=== PATIENT | female | born 1960 | race Caucasian/White ===

== ENCOUNTER 2020-05-04 07:39 | Outpatient (CLI) | payer OTHER, SELFPAY ==
--- NOTE | ~2020-05-04 | MM_ITS ---
EXAMINATION: MM screening [facility] BI w leanne HISTORY: Screening TECHNIQUE: Craniocaudal and mediolateral oblique 3-D tomosynthesis images were obtained and synthetic 2-D images were generated. CAD analysis was submitted and interpreted. COMPARISON: Comparison to multiple prior studies sequentially, with oldest reviewed study dated 10/14. BREAST PARENCHYMAL COMPOSITION: There are scattered areas of fibroglandular density. FINDINGS: There is no evidence of suspicious mass, calcification, or architectural distortion to sugg est malignancy in either breast. There has been no suspicious interval change. IMPRESSION: 1. No mammographic evidence of malignancy. 2. Recommend routine screening mammography in one year. BI-RADS Category 1: Negative Reviewed, dictated and finalized at location A.
== END 2020-05-04 07:40 | disposition home or self-care (01) ==
LOC: ANHIMG 07:45
PROVIDERS: PCP Registered Nurse; Visit Provider Registered Nurse
DX: Z12.31 Encounter for screening mammogram for malignant neoplasm of breast (principal)
CPT/HCPCS: 77063; 77067

== ENCOUNTER 2020-06-08 09:00 | Outpatient (CLI) | payer OTHER, SELFPAY ==
--- NOTE | 2020-06-11 15:02 | P.PCNHOL_ITS ---
Holter/Event Monitor Holter/Event Monitor Date of procedure: 06/11/20 Procedure Type: 48 hour Holter monitor Diagnosis: palpitation Indications: palpitation Image/Tracing Quality: favorable Finding: the basic cardiac rhythm is sinus with normal NM QRS and QT intervals. The heart rate varies from a minimum of 47 to a maximum of 133. The average heart rate was 73. There were no significant pauses or abnormalities of AV conduction. The longest RR interval recorded was 1.4 seconds. Supraventricular ectopic activity was generally infrequent consisting of occasional PACs. There were several short atrial runs noted the longest of which was only 4 beats in duration the remainder of this ectopic activity was in the form of single PACs. There were no examples of atrial fibrillation. Ventricular ectopic activity was not seen at all during this 48 hour exam the patient submitted a diary which 3 episodes of palpitations were recorded which correlated with normal sinus rhythm without ectopic activity. The atrial ectopic activity including the short atrial runs described above appear to be asymptomatic Conclusion: Essentially unremarkable 48 hour Holter monitor demonstrating low- frequency atrial ectopic activity including some brief 4 beat atrial runs which were not symptomatic Grayson Maher MD [facility]
== END 2020-06-08 09:01 | disposition home or self-care (01) ==
PROVIDERS: PCP Registered Nurse; Visit Provider Registered Nurse
DX: R00.2 Palpitations (principal)
CPT/HCPCS: 93225; 93226

== ENCOUNTER → 2021-01-26 09:19 | Outpatient (CLI) | payer OTHER, SELFPAY ==
--- NOTE | ~2021-01-26 | US_ITS ---
EXAMINATION: US right upper quadrant EXAM DATE: 01/26/2021 09:43 INDICATION: Right upper quadrant pain. TECHNIQUE: Multiple grayscale and Doppler images of the abdomen right upper quadrant were obtained (b y a technologist who performed the scan) and subsequently reviewed. There is no prior study for eddi jay. FINDINGS: The pancreatic head and body are normal in appearance. The pancreatic tail is not visualized. There is echogenic liver parenchyma, hepatic steatosis. There are no focal liver lesions identified. Th ere is no evidence of intrahepatic biliary duct dilation. Portal venous flow was seen in the hepatop edal, normal direction and has normal Doppler waveform. No right-sided hydronephrosis. Common bile duct measures 5 mm, which is normal. The gallbladder wall is normal in thickness, with ex pected amount of distention. No sonographic evidence of pericholecystic fluid. There is cholelithia sis. Technologist performing exam reports patient did not demonstrate sonographic Vale's sign. P sharon note that this sign is less reliable in patients who have received pain medication. IMPRESSION: 1. Hepatic steatosis. 2. Cholelithiasis. Reviewed, dictated and finalized at location G.
== END ==
PROVIDERS: PCP Registered Nurse; Visit Provider Registered Nurse
DX: K76.0 Fatty (change of) liver, not elsewhere classified (principal); K80.20 Calculus of gallbladder without cholecystitis without obstruction
CPT/HCPCS: 76705

== ENCOUNTER → 2021-02-14 15:39 | Outpatient (CLI) | payer OTHER, SELFPAY ==
--- NOTE | ~2021-02-14 | US_ITS ---
EXAMINATION: US thyroid EXAM DATE: 02/14/2021 15:54 INDICATION: E04.2 - Nontoxic multinodular goiter. TECHNIQUE: Multiple grayscale and Doppler images of the thyroid were obtained (by a technologist who performed the scan) and subsequently reviewed. Individual nodules and recommendations may be reporte d in accordance with TI-RADS system as designated by the 2017 ACR White Paper TI-RADS committee. Comp arison is made to prior examination from 02/15/2016. FINDINGS: Right thyroid lobe measures 2.4 x 0.9 x 1.2 cm, the left measuring 2.5 x 1.1 x 0.8 cm, within normal size limits. Mildly heterogeneous thyroid echogenicity. Largest nodule is in the right thyroid lobe measuring 9 x 7 x 6 mm (previously 10 x 6 x 8), solid (2 points), hyperechoic (1 point), wider than tall, smooth well defined margin, without echogenic foci, category TR3 for this nodule. This is benign. Couple of 4 mm left thyroid lobe nodules also benign. IMPRESSION: Several small thyroid nodules, benign. Reviewed, dictated and finalized at location A.
== END ==
PROVIDERS: PCP Registered Nurse; Visit Provider Internal Medicine Endocrinology, Diabetes & Metabolism
DX: E04.2 Nontoxic multinodular goiter (principal)
CPT/HCPCS: 76536

== ENCOUNTER → 2021-03-05 01:56 | Outpatient (CLI) | payer OTHER, SELFPAY ==
[2021-03-05 17:39] LABS: SARS-CoV-2 RNA PCR Negative
== END ==
PROVIDERS: PCP Registered Nurse; Visit Provider Surgery
DX: Z01.812 Encounter for preprocedural laboratory examination (principal); Z20.822 Contact with and (suspected) exposure to COVID-19
CPT/HCPCS: C9803; U0003; U0005

== ENCOUNTER 2021-03-06 09:40 | Outpatient (CLI) | payer OTHER, SELFPAY ==
[2021-03-06 10:27] LABS: Alanine Aminotransferase 22 U/L (4-35); Albumin Level 4.3 g/dL (3.5-5.1); Alkaline Phosphatase 83 U/L (38-126); Amylase 67 U/L (30-110); Aspartate Amino Transferase 35 U/L (14-36); Bilirubin,Total 0.2 mg/dL (0.2-1.3); Lipase 168 U/L (23-300)
== END 2021-03-06 09:41 | disposition home or self-care (01) ==
PROVIDERS: PCP Registered Nurse; Visit Provider Surgery
DX: Z01.818 Encounter for other preprocedural examination (principal); K80.20 Calculus of gallbladder without cholecystitis without obstruction
CPT/HCPCS: 36415; 80076; 82150; 83690; 86850; 86900; 86901

== ENCOUNTER 2021-03-08 00:55 | Day surgery (SDC) | payer OTHER, SELFPAY ==
[2021-03-04 17:41] VITALS: BMI 39.9
[2021-03-08] VITALS (8 sets, daily range): BP systolic 115–141; BP diastolic 59–86; PULSE 66–95; RESP 13–24; TEMP 36.9–37.4; O2SAT 94–100
[2021-03-08] MEDS: LACTATED RINGERS 1,000 ML 30 ML IV CONT ×2 (13:17→15:06)
[2021-03-08] MEDS: ACETAMINOPHEN 500 MG TABLET 1000 MG PO (13:21)
[2021-03-08] MEDS: KETOROLAC 15 MG/ML VIAL (*BKC) IV PUSH (13:22)
--- NOTE | 2021-03-08 13:33 | WPDANESEPPF ---
Anes - Initial Pre Proc Eval Procedure: Operation Date: 03/08/21 14:00 Proposed Procedures p Laparoscopic Cholecystectomy with Possible Open - Cruzito Feng DO Date/Time: 03/08/21 13:33 Surgeon: Cruzito Feng DO Pre Op Diagnosis: Sympotomatic Cholelithiasis Patient Data Age: 60 Gender: F Height: 1.65 m Weight: 109 kg Allergies Allergy/AdvReac Type Severity Reaction Status Date / Time Sulfa (Sulfonamide Allergy Unknown unknown Verified 03/08/21 13:35 Antibiotics) Home Medications Medication Instructions Recorded Confirmed Type [id number] 45 mg-folic 1 cap PO DAILY 01/14/21 03/04/21 History acid 800 mcg-vit K 120 mcg capsule clobetasol 0.05 % topical gel 1 applic TOPICAL DAILY 02/05/21 03/04/21 History ketoconazole 2 % topical cream 1 applic TOPICAL DAILY 02/05/21 03/04/21 History levothyroxine 112 mcg tablet 112 mcg PO DAILY #90 tablet 02/20/21 03/04/21 Rx Patient hx anesthesia problems: none Family hx anesthesia problems: none PMFSH Past Medical History Medical History (Updated 03/08/21 @ 13:33 by Davian Harvey MD) Morbid obesity Thyroid disease Surgical History Surgical History H/O colonoscopy 2019 H/O exploratory laparotomy H/O foot surgery History of bariatric surgery History of hysterectomy Previous section Family History Family History Father Family history of tuberculosis Family history of heart disease in male family member before age 55 Sibling Hypertension Family history of malignant neoplasm of gastrointestinal tract Family history of heart disease in male family member before age 55 Other Cerebrovascular accident Family history of alcoholism Family history of cardiovascular disease Family history of hearing loss Family history of malignant neoplasm Rectal cancer Social History Social History Smoking packs per day: 0.5 Smoking cigarettes per day: 10.0 Years smoked: 23 Smoking pack-years: 11.50 Smoking status: Former smoker Tobacco type: cigarettes Smoking end date: 07/27/97 Alcohol intake: never Substance use: never Last use: 1997 Living arrangements: with family Gender identity (if verbalized by the patient): Female Sexual Orientation (if Verbalized by the Patient): Straight or Heterosexual Spiritual care concerns: No Anes - Eval Final PreProcedure Day of Procedure 03/08/21 13:33 Patient weight: morbidly obese Heart: regular rate and rhythm Lungs: clear to auscultation Airway: Mallampati scale class II Neurological: alert and oriented Last oral intake: >/= 8 hours ASA classification: III Emergent: no Anesthetic plan: proceed Anesthesia type and monitoring: general ETT and standard monitoring Informed Consent: The patient's anesthetic plan and its attendant risks and benefits were discussed with the patient/family/POA. Questions were solicited and answers provided to the satisfaction of the patient/family/POA.
--- NOTE | 2021-03-08 14:01 | WPDHPUPDATE1 ---
History and Physical Update Update Date/Time: 03/08/21 14:01 History and Physical has been reviewed, including an updated exam of the patient. There are NO changes in the patient's condition. Risks, benefits, and alternatives have been discussed and questions answered. Patient agrees to proceed with procedure.
--- NOTE | 2021-03-08 14:01 | PM.IMHP ---
H&P: HPI History of Present Illness Date/Time: 03/08/21 14:01 Chief Complaint: symptomatic cholelithiasis Narrative: 60 yo woman presents for laparoscopic cholecystectomy. She reports no changes since last seen in office. Review of Systems Review of Systems: All systems reviewed & are unremarkable except as noted in HPI and below Constitutional: Constitutional: Denies chills, Denies fever(s), Denies headache(s) and Denies weight loss Eyes: Eyes: Denies change in vision ENT: Denies dizziness, Denies headache(s), Denies neck mass and Denies throat swelling Cardiovascular: Cardiovascular: Denies chest pain, Denies lightheadedness and Denies dyspnea Respiratory: Respiratory: Denies cough, Denies dyspnea and Denies wheezing Gastrointestinal: Gastrointestinal: Denies abdominal pain, Denies change in bowel habits, Denies nausea and Denies vomiting Genitourinary: Genitourinary: Denies hematuria and Denies dysuria Musculoskeletal: Musculoskeletal: Reports as per HPI Integumentary/Breasts: Skin/Breast: Reports as per HPI Neurologic: Denies dizziness and Denies headache(s) Allergic/Immunologic: Allergic/Immunologic: Denies throat swelling and Denies wheezing [facility] Past Medical History Medical History (Updated 03/08/21 @ 13:33 by Davian Harvey MD) Morbid obesity Thyroid disease Surgical History Surgical History H/O colonoscopy 2018 H/O exploratory laparotomy H/O foot surgery History of bariatric surgery History of hysterectomy Previous section Family History Family History Father Family history of tuberculosis Family history of heart disease in male family member before age 55 Sibling Hypertension Family history of malignant neoplasm of gastrointestinal tract Family history of heart disease in male family member before age 55 Other Cerebrovascular accident Family history of alcoholism Family history of cardiovascular disease Family history of hearing loss Family history of malignant neoplasm Rectal cancer Social History Social History Smoking packs per day: 0.5 Smoking cigarettes per day: 10.0 Years smoked: 23 Smoking pack-years: 11.50 Smoking status: Former smoker Tobacco type: cigarettes Smoking end date: 07/27/97 Alcohol intake: never Substance use: never Last use: 1997 Living arrangements: with family Gender identity (if verbalized by the patient): Female Sexual Orientation (if Verbalized by the Patient): Straight or Heterosexual Spiritual care concerns: No Meds Home Medications and Allergies Home Medications Medication Instructions Recorded Confirmed Type [id number]-jpllnevm-[id number] 45 mg-folic 1 cap PO DAILY 01/14/21 03/08/21 History acid 800 mcg-vit K 120 mcg capsule clobetasol 0.05 % topical gel 1 applic TOPICAL DAILY 02/05/21 03/08/21 History ketoconazole 2 % topical cream 1 applic TOPICAL DAILY 02/05/21 03/08/21 History levothyroxine 112 mcg tablet 112 mcg PO DAILY #90 tablet 02/20/21 03/08/21 Rx Allergies Allergy/AdvReac Type Severity Reaction Status Date / Time Sulfa (Sulfonamide Allergy Unknown unknown Verified 03/08/21 13:35 Antibiotics) Vital Signs Vital Signs - 24 hr 03/08/21 13:30 Temperature 36.9 C Pulse Rate 82 Respiratory Rate 16 Blood Pressure 139/85 Pulse Oximetry 99 Exam Const: General: no acute distress and alert Orientation/consciousness: patient oriented x3 HENMT: Head: normocephalic and atraumatic Ears: hearing grossly normal bilaterally General nose exam: Normal nares present Mouth: Yes Normal oral and palatal mucosa present Eyes: Periorbital: periorbital findings normal Sclera: sclerae normal EOM: EOMs intact bilaterally Neck: Neck: normal visual inspection, no lymphadenopathy and trachea midline Chest: Chest palpation
[2021-03-08] MEDS: ceFAZolin 2 GM/D5W 50 ML 2 GM/50 ML BAG IVPB (14:09)
--- NOTE | 2021-03-08 15:07 | W.PM.PROC2 ---
Procedure Note - Detailed Date of Procedure 03/08/21 Pre-op Diagnosis Sympotomatic Cholelithiasis Post-op Diagnosis same Procedure Performed Laparoscopic Cholecystectomy Surgeon Cruzito Feng, DO Anesthesia general and local (0.5% bupivacaine with epinephrine) Indications This is a 60-year-old woman who presented with a prior episode of upper abdominal pain about 2 months ago. She was experiencing severe pain, and workup showed evidence of cholelithiasis on ultrasound. Discussions were made with the patient about treatment options and decision was made to proceed with laparoscopic cholecystectomy, possible open. Findings Laparoscopic cholecystectomy was performed. The gallbladder contained several medium-sized gallstones that were yellowish in color and likely cholesterol stones. There did not appear to be any significant pericholecystic adhesions. No signs of acute inflammation. The cystic duct appeared normal in size. No other abnormalities were noted. The gallbladder was removed and sent to the lab for pathology. Description of Procedure Procedure as well as risks, benefits, and alternatives were discussed with patient. Written consent was obtained and placed in chart prior to procedure. The patient was brought back to surgical suite. Patient was placed in supine position on operating table. Time-out was done to confirm patient and procedure. Patient was then intubated by the anesthesia department. Abdomen was prepped and draped in sterile fashion using chlorhexidine prep. 0.5% bupivacaine with epinephrine was infiltrated at each site of incision. A 5 millimeter incision was made near the umbilicus, and a 5 millimeter Optiview trocar was advanced through the abdominal layers under direct visualization. Once inside the abdominal cavity, carbon dioxide was insufflated to create a pneumoperitoneum. The camera was inserted and the abdomen was inspected. No immediate abnormalities were identified. The patient was placed in reverse Trendelenburg position and rotated slightly to the left. An 11 millimeter incision was made in the subxiphoid region, and an 11 millimeter trocar was inserted under direct visualization. Two 5 millimeter incisions were made in the right upper quadrant, and two 5 millimeter trocars were inserted under direct visualization. The gallbladder was identified and grasped at the fundus and retracted superiorly. It was then grasped at the infundibulum retracted laterally. Careful dissection around the neck of the gallbladder was performed using blunt dissection with a [place] grasper and hook electrocautery. The cystic duct was identified, and a window was created behind it. The cystic artery was also identified and a window was created behind it. The critical view of safety was identified, visualizing the cystic duct running directly into the neck of the gallbladder, and the cystic artery running directly into the wall of the gallbladder. A 5 millimeter clip associate professor of medicine was then used to place 2 clips proximally and 1 clip distally on both the cystic duct and cystic artery. They were then both transected using endoscopic scissors. Once safely away from the blayne hepatitis, the gallbladder was dissected free from the liver bed using hook electrocautery. Hemostasis was achieved along the way. The gallbladder was removed completely and then removed through the subxiphoid port. The liver bed was then inspected. Hemostasis appeared adequate, and our clips appeared secure. The area was gently irrigated with sterile saline. No other abnormalities were seen. The patient was flattened out in bed, and 1 final inspection was made around the abdominal cavity. The subxiphoid port was removed, and a Omari Dayanara cone was used to approximate the fascia with an 0-Vicryl simple interrupted suture. The remaining ports were then removed under direct visualization, the camera was removed, and the pneumoperitoneum was released. The ski
[2021-03-08] MEDS: fentaNYL CITRATE INJ (*CRX) 100 MCG/2 ML VIAL 25 MCG IV PUSH ×3 (15:18→15:59)
[2021-03-08] MEDS: ONDANSETRON INJ 4 MG/2 ML VIAL IV PUSH (15:36)
[2021-03-08] MEDS: SCOPOLAMINE 1.5 MG PATCH TRANSDERM (15:58)
[2021-03-08] MEDS: diphenhydrAMINE HCl INJ 50 MG/ML VIAL 25 MG IV PUSH (16:10)
[2021-03-08] MEDS: oxyCODONE HCL (*CRX) 5 MG TAB IR PO (16:41)
== END 2021-03-08 17:00 | disposition home or self-care (01) ==
PROVIDERS: PCP Registered Nurse; Visit Provider Surgery
PROC: 0FT44ZZ Resection of Gallbladder, Percutaneous Endoscopic Approach (ICD-10-PCS; CPT 47562; principal; 2021-03-08 14:00)
DX: K80.10 Calculus of gallbladder with chronic cholecystitis without obstruction (principal); E03.9 Hypothyroidism, unspecified; E66.01 Morbid (severe) obesity due to excess calories; Z68.41 Body mass index [BMI] 40.0-44.9, adult; Z87.891 Personal history of nicotine dependence
CPT/HCPCS: 47562; 36415; 80076; 82150; 83690; 86850; 86900; 86901; 88304; A9270; C9803; J0690; J1200; J1885; J2250; J2405; J3010; J7030; J7120; U0003; U0005

== ENCOUNTER → 2022-03-07 11:45 | Outpatient (CLI) | payer OTHER, SELFPAY ==
--- NOTE | ~2022-03-07 | MM_ITS ---
EXAMINATION: MM screening [facility] BI w leanne HISTORY: Screening mammogram TECHNIQUE: Craniocaudal and mediolateral oblique 3-D tomosynthesis images were obtained and synthetic 2-D images were generated. CAD analysis was submitted and interpreted. COMPARISON: 05/04/2020, 02/25/2019, 01/11/2018 BREAST PARENCHYMAL COMPOSITION: There are scattered areas of fibroglandular density. FINDINGS: There is no suspicious mass, calcification, or architectural distortion to suggest malignan cy in either breast. There has been no suspicious interval change. IMPRESSION: 1. No mammographic evidence of malignancy. 2. Recommend routine screening mammography in one year. BI-RADS Category 1: Negative Reviewed, dictated and finalized at location A.
== END ==
PROVIDERS: PCP Registered Nurse; Visit Provider Registered Nurse
DX: Z12.31 Encounter for screening mammogram for malignant neoplasm of breast (principal)
CPT/HCPCS: 77063; 77067

== ENCOUNTER 2022-08-25 13:36 | Outpatient (CLI) | payer OTHER, SELFPAY ==
--- NOTE | ~2022-08-25 | US_ITS ---
EXAMINATION: US thyroid DATE: 08/25/2022 13:52 INDICATION: Nontoxic multinodular goiter. TECHNIQUE: Multiple ultrasound images of the thyroid were obtained. COMPARISON: Ultrasound 02/14/2021 FINDINGS: The right thyroid lobe measures 2.6 x 1.0 x 1.2 cm. The left thyroid lobe measures 2.9 x 1.0 x 0.8 c m. In the left thyroid lobe, there is a 3 mm nodule. In the right thyroid lobe, there is an 11 mm so lid, isoechoic, wider than tall nodule with smooth margin without echogenic foci (TI-RADS TR3). IMPRESSION: 1. Small thyroid nodules, likely not clinically significant. No follow-up is needed. Reviewed, dictated and finalized at location A. E SHOT CAMERAMAN IMPRESSION: 1. Small thyroid nodules, likely not clinically significant. No follow-up is ne eded.
== END 2022-08-25 13:37 ==
PROVIDERS: PCP Registered Nurse; Visit Provider Internal Medicine Endocrinology, Diabetes & Metabolism
DX: E04.2 Nontoxic multinodular goiter (principal)
CPT/HCPCS: 76536

== ENCOUNTER → 2023-02-24 10:36 | Outpatient (CLI) | payer OTHER, SELFPAY ==
--- NOTE | ~2023-02-24 | MR_ITS ---
MRI of the lumbar spine Clinical History: Back pain Technique: Axial T2-weighted images, and sagittal T1-weighted, T2-weighted, and and T2 fat-sat images were acquired. Findings: There is no fracture or subluxation of the lumbar spine. Vertebral bodies maintain normal h eight and alignment. No suspicious bone marrow signal abnormality seen. At L1-L2, L2-L3, L3-L4, there are moderate to advanced facet joint degenerative changes. No disc bulg e or herniation at these levels. No spinal canal stenosis or neural foraminal narrowing at these leve ls. At L4-L5, there is minimal disc bulge and moderate facet arthropathy. No central canal stenosis. No d efinite neural foraminal narrowing. At L5-S1, there is minimal disc bulge and moderate to advanced facet arthropathy. No central canal st enosis. There is moderate to severe left neural foraminal narrowing, and moderate right neural forami nal narrowing. Paravertebral soft tissues are unremarkable. Impression: Bilateral neural foraminal narrowing at L5-S1, left worse than right, as detailed above. Facet joint degenerative changes throughout the lumbar spine, as detailed above. Reviewed, dictated and finalized at location . Impression: Bilateral neural foraminal narrowing at L5-S1, left worse than right, as detail ed above. Facet joint degenerative changes throughout the lumbar spine, as detailed above .
== END ==
PROVIDERS: PCP Registered Nurse; Visit Provider Registered Nurse
DX: M25.551 Pain in right hip (principal)
CPT/HCPCS: 72148

== ENCOUNTER → 2023-06-10 10:28 | Outpatient (CLI) | payer OTHER, SELFPAY ==
--- NOTE | ~2023-06-10 | MM_ITS ---
EXAMINATION: MM screening [facility] BI w leanne HISTORY: Screening mammogram TECHNIQUE: Craniocaudal and mediolateral oblique 3-D tomosynthesis images were obtained and synthetic 2-D images were generated. CAD analysis was submitted and interpreted. COMPARISON: 03/07/2022, 05/04/2020, 02/25/2019 BREAST PARENCHYMAL COMPOSITION: There are scattered areas of fibroglandular density. FINDINGS: No suspicious mass, calcification, or architectural distortion are identified in either clarice ast to suggest malignancy. There has been no suspicious interval change. IMPRESSION: 1. No mammographic evidence of malignancy. 2. Recommend routine screening mammography in one year. BI-RADS Category 1: Negative Reviewed, dictated and finalized at location A. YSTEM ECOLOGY PROFESSOR
== END ==
PROVIDERS: PCP Registered Nurse; Visit Provider Registered Nurse
DX: Z12.31 Encounter for screening mammogram for malignant neoplasm of breast (principal)
CPT/HCPCS: 77063; 77067

== ENCOUNTER 2023-09-24 09:28 | Day surgery (SDC) | payer OTHER, SELFPAY ==
[2023-09-02 09:28] VITALS: BMI 37.0
[2023-09-08 10:52] VITALS: BMI 38.9
--- NOTE | 2023-09-24 08:46 | WPDHPUPDATE1 ---
History and Physical Update Update Date/Time: 09/24/23 08:46 Patient seen and examined in pre-operative holding area. No interval change in medical history or symptoms. Patient recalls previous discussion of benefits and alternatives to procedure. Continues to desire to proceed with left endoscopic possible open carpal tunnel release and concurrent right carpal tunnel and right ring finger retinacular cyst steroid injection . Reviewed procedure, post-op expectations and risks including but not limited to bleeding, infection, injury to tendon/nerve/vessel, decreased hand function, stiffness, RSD, no change or worsening of symptoms, recurrence. I discussed the possible use of assistants and their participation in the case. Patient stated understanding and signed the consent form wishing to proceed.
--- NOTE | 2023-09-24 08:47 | W.PM.PROC2 ---
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 The patient signed the consent form. PROCEDURE IN DETAIL:The patient taken back to OR on the stretcher in supine position. Time out performed with anesthesia, surgeon and staff agreeing on patient's name site and surgery to be performed SCDs were placed on the lower extremities and inflated. A tourniquet was placed on {left} upper extremity and antibiotics given IV After anesthesia administered sedation I injected {5}cc 1%lido with epi and 0.5% marcaine plain at the operative site The?{left upper extremity}?was prepped and draped in sterile fashion the??{left upper extremity} was? exsanguinated with Esmarch bandage and tourniquet inflated to 250mmHg I made a transverse incision in the {left} volar distal wrist crease through skin and dermis with 15 blade scalpel.? Littler scissors spread down to antebrachial fascia. A small incision was made in antebrachial fascia allowing access to Carpal tunnel. I proceeded with sequential dilation staying in line with the ring finger and hugging the hook of the hamate.? I then used the synovial elevator to free any adhesions from the underside of the transverse carpal ligament. Next I was able to insert the arthrex centerline endoscopic carpal tunnel device with direct visualization of the transverse fibers on the monitor and proceeded with complete segmental retrograde release of the ligament in its entirety.? I irrigated with normal saline and closed with 4-0 monocryl for dermis and subcuticular closure. A dressing of Dermabond, 4x4, andreas, and a volar splint was applied for patient safety, security, and comfort and secured with an alisa bandage after the tourniquet was let down noting the hand was warm and well perfused. Next, I proceeded with injecting 0.3cc 1%lidocaine plain and 0.7cc Betamethasone 6mg/ml into the right carpal tunnel and right ring finger retinacular cyst under sterile conditions. The patient was then awaken from anesthesia and transferred to the recovery room in stable condition.? Complications - none EBL- 0cc Disposition - home in stable conditions Lavon Escamilla PA-C was essential for positioniing, retraction, closure and dressing placement [facility] Billing Surgery - Charge Forward: Surgery Billing ([id number] for lavon)
[2023-09-24 10:10] VITALS: BP 124/87; PULSE 76; RESP 20; TEMP 36.4; O2SAT 100
[2023-09-24] MEDS: LACTATED RINGERS 1,000 ML 30 ML IV CONT ×2 (10:22→11:45)
--- NOTE | 2023-09-24 10:37 | WPDANESEPPF ---
Anes - Initial Pre Proc Eval Procedure: Operation Date: 09/24/23 11:15 Proposed Procedures p Left Endoscopic Carpal Tunnel Release, Possible Open Carpal Tunnel Release - Brianna Diaz MD s Concurrent Right Carpal Tunnel Injection; Right Ring Finger Retinacular Cyst Injection - Brianna Diaz MD Date/Time: 09/24/23 10:37 Surgeon: Brianna Diaz MD Pre Op Diagnosis: Bilateral Upper Limb Carpal Tunnel Syndrome Patient Data Age: 63 Gender: F Height: 1.65 m Weight: 105.7 kg Last Vital Signs Temp 36.4 C 09/24/23 10:10 Pulse 76 09/24/23 10:10 Resp 20 09/24/23 10:10 BP 124/87 09/24/23 10:10 Pulse Ox 100 09/24/23 10:10 O2 Del Method Room Air 09/24/23 10:10 Allergies Allergy/AdvReac Type Severity Reaction Status Date / Time No Known Allergies Allergy Verified 09/24/23 10:20 Home Medications Medication Instructions Recorded Confirmed Type [id number]-bejgwttg-ocad 45 mg-folic 1 cap PO DAILY 01/14/21 09/08/23 History acid 800 mcg-vit K 120 mcg capsule (Bariatric Multivitamins) clobetasol 0.05 % topical gel 1 applic topical DAILY 02/05/21 09/08/23 History estradiol 0.01% (0.1 mg/gram) 1 appful vaginal DAILY 04/23/22 09/08/23 History vaginal cream levothyroxine 112 mcg tablet 112 mcg PO DAILY #90 tabs 07/06/23 09/24/23 Rx atorvastatin 10 mg tablet 10 mg PO DAILY 09/08/23 09/08/23 History tramadol 50 mg tablet 50 mg PO Q6H PRN pain #12 tabs 09/24/23 Rx Patient hx anesthesia problems: none Family hx anesthesia problems: none Results Review: All pre-operative results and documents have been reviewed as part of the pre-operative evaluation. [facility] Past Medical History Medical History Morbid obesity Thyroid disease Surgical History Surgical History H/O colonoscopy 2019 H/O exploratory laparotomy H/O foot surgery History of bariatric surgery History of hysterectomy Hx laparoscopic cholecystectomy Previous section Family History Family History Father Family history of tuberculosis Family history of heart disease in male family member before age 55 Sibling Hypertension Family history of malignant neoplasm of gastrointestinal tract Family history of heart disease in male family member before age 55 Other Cerebrovascular accident Family history of alcoholism Family history of cardiovascular disease Family history of hearing loss Family history of malignant neoplasm Rectal cancer Social History Social History Smoking packs per day: 0.5 Smoking cigarettes per day: 10.0 Years smoked: 23 Smoking pack-years: 11.50 Smoking status: Never smoker Tobacco type: cigarettes Second hand tobacco smoke exposure: No Smoking end date: 07/27/97 Alcohol intake: never Substance use: never Substance use type: does not use Last use: 1997 Living arrangements: with family Gender identity (if verbalized by the patient): Female Sexual Orientation (if Verbalized by the Patient): Straight or Heterosexual Spiritual care concerns: No Anes - Eval Final PreProcedure Day of Procedure 09/24/23 10:37 Patient weight: obese Heart: regular rate and rhythm Lungs: clear to auscultation Airway: Mallampati scale class II Neurological: alert and oriented Last oral intake: >/= 8 hours ASA classification: III Emergent: no Anesthetic plan: proceed Anesthesia type and monitoring: general GIVS and standard monitoring Results Review: All pre-operative results and documents have been reviewed as part of the pre-operative evaluation. Informed Consent: The patient's anesthetic plan and its attendant risks and benefits were discussed with the patient/family/POA. Questions were solicited and answers provi
[2023-09-24] MEDS: ceFAZolin SODIUM 2 GM/20 ML SW SYRINGE IV PUSH (10:52)
[2023-09-24] MEDS: LIDO 1%/EPINEPHRINE 1:100,000 20 ML VIAL INFILTRATE (10:57)
[2023-09-24] MEDS: BUPivacaine HCL 0.5% 10 ML AMP 2 ML INFILTRATE (10:57)
[2023-09-24] MEDS: LIDOCAINE HCL 1% PF INJ 5 ML VIAL 0.6 ML INFILTRATE (10:58)
[2023-09-24] MEDS: BETAMETHASONE SODIUM PHOSPHATE PF INJ 6 MG/ML VIAL 8.4 MG INFILTRATE (10:58)
[2023-09-24 11:16] VITALS: BP 90/58; PULSE 68; RESP 16; O2SAT 94
--- NOTE | 2023-09-24 11:37 | WPDANESPN ---
Anes - Prog Note Post-Op Date/Time: 09/24/23 11:37 Cardiovascular status: normal Respiratory status: normal Airway patency: baseline Mental status: baseline Post-Op hydration status: normal Vital Signs: Last Vital Signs Temp 36.4 C 09/24/23 10:10 Pulse 68 09/24/23 11:16 Resp 16 09/24/23 11:16 BP 90/58 L 09/24/23 11:16 Pulse Ox 94 09/24/23 11:16 O2 Del Method Room Air 09/24/23 11:16 Pain Score (VAS): 0 Patient Feedback: Patient satisfied with anesthetic care.
[2023-09-24 11:39] VITALS: BP 96/75; PULSE 68; RESP 16; O2SAT 98
[2023-09-24 11:42] VITALS: BP 93/63; PULSE 67; RESP 16
== END 2023-09-24 12:05 | disposition home or self-care (01) ==
PROVIDERS: PCP Registered Nurse; Visit Provider Plastic Surgery
PROC: 01N54ZZ Release Median Nerve, Percutaneous Endoscopic Approach (ICD-10-PCS; CPT 29848; principal; 2023-09-24 11:15)
PROC: (CPT 29848; 2023-09-24 11:15)
DX: G56.02 Carpal tunnel syndrome, left upper limb (principal); G56.01 Carpal tunnel syndrome, right upper limb; M67.441 Ganglion, right hand
CPT/HCPCS: 29848; 20526; 20612

== ENCOUNTER 2023-12-24 07:00 | Outpatient (NON) | payer OTHER, SELFPAY | END 2023-12-24 07:01 | disposition home or self-care (01) | PROVIDERS: PCP Registered Nurse; Visit Provider Plastic Surgery | DX: M67.441 Ganglion, right hand (principal) | CPT/HCPCS: 88305 ==

== ENCOUNTER 2023-12-24 07:13 | Day surgery (SDC) | payer OTHER, SELFPAY ==
[2023-12-04 13:27] VITALS: BMI 39.2
--- NOTE | 2023-12-24 06:32 | WPDANESEPPF ---
Anes - Initial Pre Proc Eval Procedure: Operation Date: 12/24/23 09:00 Proposed Procedures p Right Endoscopic Carpal Tunnel Release, Possible Open Carpal Tunnel Release - Brianna Diaz MD s Excision Retinacular Cyst Right Ring Finger - Brianna Diaz MD Date/Time: 12/24/23 06:32 Surgeon: Brianna Diaz MD Pre Op Diagnosis: RT Carpal Tunnel Syndrome, Ganglion Cyst RT Ring Patient Data Age: 63 Gender: F Height: 1.65 m Weight: 107 kg Allergies Allergy/AdvReac Type Severity Reaction Status Date / Time No Known Allergies Allergy Verified 12/24/23 08:13 Home Medications Medication Instructions Recorded Confirmed Type iitharel-ajppoagi-eckp 45 mg-folic 1 cap PO DAILY 01/14/21 12/24/23 History acid 800 mcg-vit K 120 mcg capsule (Bariatric Multivitamins) clobetasol 0.05 % topical gel 1 applic topical DAILY 02/05/21 12/24/23 History atorvastatin 10 mg tablet 10 mg PO DAILY 09/08/23 12/24/23 History levothyroxine 112 mcg tablet See Rx Instructions .Route 10/05/23 12/24/23 Rx .COMPLEX #30 tabs tramadol 50 mg tablet 50 mg PO Q6H PRN pain #12 tabs 12/24/23 Rx Patient hx anesthesia problems: none Family hx anesthesia problems: none Results Review: All pre-operative results and documents have been reviewed as part of the pre-operative evaluation. [facility] Past Medical History Medical History (Updated 12/24/23 @ 06:33 by Kai Gagnon DO) Hyperlipidemia Hypothyroid Morbid obesity PONV (postoperative nausea and vomiting) Surgical History Surgical History (Updated 12/24/23 @ 06:33 by Kai Gagnon DO) H/O colonoscopy 2019 H/O exploratory laparotomy H/O foot surgery History of bariatric surgery 2019 History of hysterectomy Hx laparoscopic cholecystectomy Previous section Family History Family History Father Family history of tuberculosis Family history of heart disease in male family member before age 55 Sibling Hypertension Family history of malignant neoplasm of gastrointestinal tract Family history of heart disease in male family member before age 55 Other Cerebrovascular accident Family history of alcoholism Family history of cardiovascular disease Family history of hearing loss Family history of malignant neoplasm Rectal cancer Social History Social History Smoking packs per day: 0.5 Smoking cigarettes per day: 10.0 Years smoked: 23 Smoking pack-years: 11.50 Smoking status: Former smoker Tobacco type: cigarettes Second hand tobacco smoke exposure: Yes Smoking end date: 07/27/97 Alcohol intake: never Substance use: never Substance use type: does not use Last use: 1997 Living arrangements: with family Gender identity (if verbalized by the patient): Female Sexual Orientation (if Verbalized by the Patient): Straight or Heterosexual Spiritual care concerns: No Anes - Eval Final PreProcedure Day of Procedure 12/24/23 06:32 Patient weight: obese Heart: regular rate and rhythm Lungs: clear to auscultation Airway: Mallampati scale class II Neurological: alert and oriented Last oral intake: >/= 8 hours ASA classification: III Emergent: no Anesthetic plan: proceed Anesthesia type and monitoring: general GIVS and standard monitoring Results Review: All pre-operative results and documents have been reviewed as part of the pre-operative evaluation. Informed Consent: The patient's anesthetic plan and its attendant risks and benefits were discussed with the patient/family/POA. Questions were solicited and answers provided to the satisfaction of the patient/family/POA.
--- NOTE | 2023-12-24 07:18 | P.OP_ITS ---
Procedure Note - Detailed Date of Procedure 12/24/23 Pre-op Diagnosis RT Carpal Tunnel Syndrome, Ganglion Cyst RT Ring Post-op Diagnosis Same Procedure Performed right ectr and R RF retinacular cyst excision Surgeon Brianna Diaz MD Hemodialysis Charge Nurse lavon villanueva pa-c Anesthesia MAC Description of Procedure INFORMED CONSENT: The patient was seen and examined and marked in the pre-op area.? The patient signed the consent form. PROCEDURE IN DETAIL:The patient taken back to OR on the stretcher in supine position. Time out performed with anesthesia, surgeon and staff agreeing on patient's name site and surgery to be performed SCDs were placed on the lower extremities and inflated. A tourniquet was placed on {right} upper extremity and antibiotics given IV After anesthesia administered sedation I injected {5}cc 1%lido with epi and 0.5% marcaine plain at the operative site The?{right upper extremity}?was prepped and draped in sterile fashion the??{right upper extremity} was? exsanguinated with Esmarch bandage and tourniquet inflated to 250mmHg I made a transverse incision in the {right} volar distal wrist crease through skin and dermis with 15 blade scalpel.? Littler scissors spread down to antebrachial fascia. A small incision was made in antebrachial fascia allowing access to Carpal tunnel. I proceeded with sequential dilation staying in line with the ring finger and hugging the hook of the hamate.? I then used the synovial elevator to free any adhesions from the underside of the transverse carpal ligament. Next I was able to insert the Microaire endoscopic carpal tunnel device with direct visualization of the transverse fibers on the monitor and proceeded with complete segmental retrograde release of the ligament in its entirety.? I irrigated with normal saline and closed with 4-0 monocryl for dermis and subcuticular closure. Next, I proceeded with making an oblqie incision over the right ring finger cyst going obliquely across mpj flexion crease through skin and dermis with a 15 blade scalpel. I used littler scissors to spread down the the cyst coming off the a2 javon. I excised a small section of the javon along with the cyst. The fds and fdp tendons were inspected and appeared free of further masses, synovitis and were gliding smoothly in the sheath. The remainder of a2 was intact and no bowstringing noted. I irrigated with normal saline and closed with 4-0 chromic A dressing of Dermabond (wrist) and xeroform (finger) , 4x4, andreas, and a volar splint was applied for patient safety, security, and comfort and secured with an alisa bandage after the tourniquet was let down noting the hand was warm and well perfused. The patient was then awaken from anesthesia and transferred to the recovery room in stable condition.? Complications - none EBL- 0cc Disposition - home in stable conditions lavon villanueva pa-c was essential for positioning, retraction, closure and dressing placement G Billing Surgery - Charge Forward: Surgery Billing ([id number], for lavon )
--- NOTE | 2023-12-24 07:18 | PM.HPGS ---
History of Present Illness History of Present Illness Chief complaint: RT Carpal Tunnel Syndrome, Ganglion Cyst RT Ring Narrative: Patient seen and examined in pre-operative holding area. No interval change in medical history or symptoms. Patient recalls previous discussion of benefits and alternatives to procedure. Continues to desire to proceed with right endoscopic possible open carpal tunnel release and right ring finger retinacular cyst excision . Reviewed procedure, post-op expectations and risks including but not limited to bleeding, infection, injury to tendon/nerve/vessel, decreased hand function, stiffness, RSD, no change or worsening of symptoms, recurrence. I discussed the possible use of assistants and their participation in the case. Patient stated understanding and signed the consent form wishing to proceed. Review of Systems Review of Systems: All systems reviewed & are unremarkable except as noted in HPI and below PMFSH Past Medical History Medical History (Updated 12/24/23 @ 06:33 by Kai Gagnon DO) Hyperlipidemia Hypothyroid Morbid obesity PONV (postoperative nausea and vomiting) Surgical History Surgical History (Updated 12/24/23 @ 06:33 by Kai Gagnon DO) H/O colonoscopy 2019 H/O exploratory laparotomy H/O foot surgery History of bariatric surgery 2019 History of hysterectomy Hx laparoscopic cholecystectomy Previous section Family History Family History Father Family history of tuberculosis Family history of heart disease in male family member before age 55 Sibling Hypertension Family history of malignant neoplasm of gastrointestinal tract Family history of heart disease in male family member before age 55 Other Cerebrovascular accident Family history of alcoholism Family history of cardiovascular disease Family history of hearing loss Family history of malignant neoplasm Rectal cancer Social History Social History Smoking packs per day: 0.5 Smoking cigarettes per day: 10.0 Years smoked: 23 Smoking pack-years: 11.50 Smoking status: Former smoker Tobacco type: cigarettes Second hand tobacco smoke exposure: Yes Smoking end date: 07/27/97 Alcohol intake: never Substance use: never Substance use type: does not use Last use: 1997 Living arrangements: with family Gender identity (if verbalized by the patient): Female Sexual Orientation (if Verbalized by the Patient): Straight or Heterosexual Spiritual care concerns: No Meds Home Medications and Allergies Home Medications Medication Instructions Recorded Confirmed Type jlittgbt-dyscmvpb-uvzo 45 mg-folic 1 cap PO DAILY 01/14/21 12/24/23 History acid 800 mcg-vit K 120 mcg capsule (Bariatric Multivitamins) clobetasol 0.05 % topical gel 1 applic topical DAILY 02/05/21 12/24/23 History atorvastatin 10 mg tablet 10 mg PO DAILY 09/08/23 12/24/23 History levothyroxine 112 mcg tablet See Rx Instructions .Route 10/05/23 12/24/23 Rx .COMPLEX #30 tabs tramadol 50 mg tablet 50 mg PO Q6H PRN pain #12 tabs 12/24/23 Rx Allergies Allergy/AdvReac Type Severity Reaction Status Date / Time No Known Allergies Allergy Verified 12/24/23 08:13 Exam Narrative: unchanged Assessment and Plan Assessment and plan (1) Ganglion cyst of finger: Code(s): M67.449 - Ganglion, unspecified hand Status: Acute Assessment and Plan: cont as above (2) Bilateral carpal tunnel syndrome: Code(s): G56.03 - Carpal tunnel syndrome, bilateral upper limbs Status: Acute
[2023-12-24 08:25] VITALS: BP 141/92; PULSE 78; RESP 18; TEMP 37.2; O2SAT 98; BMI 40.2
[2023-12-24] MEDS: LACTATED RINGERS 1,000 ML 30 ML IV CONT (08:39)
--- NOTE | 2023-12-24 08:39 | SUR.PREOP ---
IV STARTED IN LEFT HAND. ACCIDENTALLY CHARTED RT HAND. IV IS A LEFT HAND #20.
[2023-12-24] MEDS: ceFAZolin SODIUM 2 GM/20 ML SW SYRINGE IV PUSH (09:25)
[2023-12-24] MEDS: LIDO 1%/EPINEPHRINE 1:100,000 50 ML VIAL INFILTRATE (09:28)
[2023-12-24] MEDS: BUPivacaine HCL 0.5% 10 ML AMP 3 ML INFILTRATE (09:29)
[2023-12-24 09:52] VITALS: BP 109/81; PULSE 91; RESP 14; O2SAT 95
[2023-12-24 10:02] VITALS: BP 107/72; PULSE 84; RESP 15; O2SAT 96
[2023-12-24 10:12] VITALS: BP 113/76; PULSE 72; RESP 16; O2SAT 94
--- NOTE | 2023-12-24 11:22 | WPDANESPN ---
Anes - Prog Note Post-Op Date/Time: 12/24/23 11:22 Cardiovascular status: normal Respiratory status: normal Airway patency: baseline Mental status: baseline Post-Op hydration status: normal Vital Signs: Last Vital Signs Temp 37.2 C 12/24/23 08:25 Pulse 72 12/24/23 10:12 Resp 16 12/24/23 10:12 BP 113/76 12/24/23 10:12 Pulse Ox 94 12/24/23 10:12 O2 Del Method Room Air 12/24/23 10:12 Pain Score (VAS): 0 Post-procedural complaints: none Patient Feedback: Patient satisfied with anesthetic care. Other Findings: Patient vital signs back to baseline. Patient denies nausea and vomiting. Patient's pain under control. Patient OK for discharge.
== END 2023-12-24 10:32 | disposition home or self-care (01) ==
PROVIDERS: PCP Registered Nurse; Visit Provider Plastic Surgery
PROC: 01N54ZZ Release Median Nerve, Percutaneous Endoscopic Approach (ICD-10-PCS; CPT 29848; principal; 2023-12-24 09:00)
PROC: (CPT 29848; 2023-12-24 09:00)
DX: G56.01 Carpal tunnel syndrome, right upper limb (principal); M67.441 Ganglion, right hand
CPT/HCPCS: 29848; 26160

== ENCOUNTER 2024-08-17 14:00 | Outpatient (CLI) | payer OTHER, SELFPAY ==
--- NOTE | ~2024-08-17 | MM_ITS ---
EXAMINATION: MM screening david BI w leanne HISTORY: Screening TECHNIQUE: Craniocaudal and mediolateral oblique 3-D tomosynthesis images were obtained and synthetic 2-D images were generated. CAD analysis was submitted and interpreted. COMPARISON: Comparison to multiple prior studies sequentially, with oldest reviewed study dated 03/09. BREAST PARENCHYMAL COMPOSITION: Not Dense. The breasts are almost entirely fatty. FINDINGS: There is no evidence of suspicious mass, calcification, or architectural distortion to sugg est malignancy in either breast. There has been no suspicious interval change. IMPRESSION: 1. No mammographic evidence of malignancy. 2. Recommend routine screening mammography in one year. BI-RADS Category 1: Negative Reviewed, dictated and finalized at location A. [facility] [employer]TER
== END 2024-08-17 14:01 | disposition home or self-care (01) ==
LOC: MICIMG 14:01
PROVIDERS: PCP Registered Nurse; Visit Provider Registered Nurse
DX: Z12.31 Encounter for screening mammogram for malignant neoplasm of breast (principal)
CPT/HCPCS: 77063; 77067

== ENCOUNTER 2025-07-06 12:44 | Outpatient (CLI) | payer OTHER, SELFPAY ==
--- NOTE | ~2025-07-06 | MR_ITS ---
EXAMINATION: MR foot LT wo con DATE: 07/06/2025 13:22 INDICATION: TECHNIQUE: Magnetic resonance imaging (MRI) of the left mid/hindfoot and ankle was performed without intravenous contrast. Sequences included sagittal T1- weighted FSE, sagittal fluid sensitive FSE STIR, coronal PD-weighted FS FSE, coronal T1-weighted FSE, axial PD-weighted FS FSE, and axial PD-weighted FSE. COMPARISON: Left ankle radiographs dated 03/01/2025 FINDINGS: Medial ankle ligaments: Deep and superficial deltoid ligaments as well as the spring ligament are normal. Lateral ankle ligaments: The anterior and posterior inferior tibiofibular ligaments are normal. The anterior talofibular, calcaneofibular and posterior talofibular ligaments are normal. Tendons: Mild to moderate insertional tendinosis with moderate size enthesophyte at the calcaneal insertion of the distal Achilles tendon. Mild peritendinitis. Tiny focus of fluid signal intensity at the calcaneal insertion of the central tendon suspicious for very small partial tear. The peroneus longus and brevis tendons are normal. The tibialis anterior and extensor hallucis longus and extensor digitorum longus tendons are normal. The tibialis posterior, flexor digitorum longus and flexor hallucis longus tendons are normal. Plantar fascia: There is a large plantar calcaneal spur with mild thickening and minimal increased signal of the central component of the plantar aponeurosis without associated marrow or soft tissue edema consistent with chronic plantar enthesopathy without acute plantar fasciitis. Bones/other: Mid foot arthrodesis with fixation device with cannulated screws spanning the second and third tarsal metatarsal joints. There is also osseous fusion across the joint space between the medial, mid and lateral cuneiforms. Bone alignment is normal. No fracture or pathologic marrow replacing process. Mild osteoarthritis at the ankle and remaining unfused joints in the mid and hindfoot. Fluid: Physiologic amount fluid in the joint spaces. No tenosynovitis, bursitis or other abnormal fluid collections. IMPRESSION: 1. Mild to moderate Achilles calcaneal enthesitis with moderate-sized enthesophyte, mild peritendinitis and possible tiny partial-thickness tear at the calcaneal insertion of the central tendon. 2. Mild chronic plantar enthesopathy without acute plantar fasciitis. 3. Instrumented midfoot arthrodesis with fusion between the medial, mid and lateral cuneiforms and the bases of the second and third metatarsals. Reviewed, dictated and finalized at location A. CURER IMPRESSION: 1. Mild to moderate Achilles calcaneal enthesitis with moderate-sized enthesoph yte, mild peritendinitis and possible tiny partial-thickness tear at the calcan eal insertion of the central tendon. 2. Mild chronic plantar enthesopathy without acute plantar fasciitis. 3. Instrumented midfoot arthrodesis with fusion between the medial, mid and lat eral cuneiforms and the bases of the second and third metatarsals.
== END 2025-07-06 12:45 | disposition home or self-care (01) ==
LOC: MICIMG 12:44
PROVIDERS: PCP Registered Nurse; Visit Provider Orthopaedic Surgery
DX: M77.32 Calcaneal spur, left foot (principal)
CPT/HCPCS: 73718